=== PATIENT | male | born 2000 | race African-American/Black ===

== ENCOUNTER 2020-01-19 09:11 | Emergency (ER) | payer OTHER, SELFPAY ==
[2020-01-19 09:13] VITALS: BP 186/110; PULSE 98; RESP 17; TEMP 37.2; O2SAT 99; BMI 33.4
--- NOTE | 2020-01-19 09:24 | ED.DCSUM_ITS ---
History of Present Illness Chief Complaint: Sore Throat Informant: Patient Onset: Days Narrative: 20 year old male with no past medical history presents with complaints of sore throat. He has had a sore throat x4 days. Pain is more on the left side and he has developed neck swelling and hoarseness of his voice. He has odynophagia, but denies dysphagia. Denies fevers, chills, nausea, or vomiting. Past Medical History - Allergies and Home Meds Allergies/Adverse Reactions: Allergies No Known Allergies Allergy (Verified 01/19/20 09:13) Primary Care Physician: [facility] Doctor,Out of [NON-STAFF] - Past Medical History: None Review of Systems General: Denies: Chills, Fever, Sweats Eyes: Denies: Visual changes - bilaterally, Diplopia ENT: Reports: Sore throat. Denies: Rhinorrhea Cardiovascular: Denies: Chest pain, Palpitations Respiratory: Denies: Dyspnea, Cough, Dyspnea on exertion Gastrointestinal: Denies: Abdominal pain, Nausea, Vomiting, Diarrhea, Melena, Hematochezia Genitourinary: Denies: Dysuria, Hematuria, Frequency Musculoskeletal: Denies: Back pain, Extremity Pain Skin: Denies: Rash, Wounds Neurological: Denies: Headache, Weakness, Numbness Physical Exam Vital Signs/Narrative: Vital Signs Temp Pulse Resp BP Pulse Ox 01/19/20 09:13 98.9 F 98 17 186/110 H 99 Inital Vital Signs reviewed: Yes General: Well nourished, Well developed, No Acute Distress Head: Normocephalic, Atraumatic Eyes: Perrl, EOMI ENT: Moist mucous membranes, - - Visible left peritonsillar abscess with mild uvular deviation Neck: Supple, Nontender Cardiovascular: Regular rate, Regular rhythm, No murmurs Respiratory: No distress, CTA bilaterally, Chest nontender Abdomen: Soft, Nontender, Nondistended, Normal bowel sounds Back: Nontender, Normal Inspection Extremities: Nontender, No edema Skin: Normal color, No rash Neurological: Alert, Oriented x3, Cranial nerves II-XII grossly intact, Normal Strength, Normal Sensation Psychological: Normal affect, Normal Mood Diagnostic/Tx/Re-eval - Medical Decision Making Patient appears well nontoxic. Vital signs remarkable for BP of 186/110, otherwise normal. O2 sat 99% on room air. He has a visible left peritonsillar abscess. I consulted ENT who evaluated the patient and tried to drain the area multiple times without success. He believes it is a phlegmon. He was given Decadron and Unasyn here. He will be prescribed Augmentin for home. Thoroughly discussed return precautions including if he get worse or he has difficulty breathing to return to the ED. He will follow-up with ENT in the office in 1 week. He remained persistently hypertensive. Patient states he has been told he has hypertension before but it is untreated. He understands he needs to follow-up with his PCP. He was agreeable with this plan and discharged home in stable condition. ED Disposition - Plan for ED Patient: Disposition: Home or Assisted Living Diagnosis: Peritonsillar abscess Prescriptions: Amoxicillin/Potassium Clav [Augmentin 875-125 Tablet] 1 ea PO BID 10 Days #20 tab Transmission Status: Received by [facility] Referrals: [facility] Doctor,Out of [NON-STAFF] -
[2020-01-19] MEDS: dexAMETHasone 10 MG/ML Vial PO.IVFORM (10:02)
--- NOTE | 2020-01-19 10:44 | CON.PCM_ITS ---
Reason for Consult Date of Consultation: 01/19/20 History of Present Illness: The patient is a 20 year old M with a sore throat for 4 days. this worsened over the past 24 hours. received magic mouthwash from [employer]. denies dyspnea. mild odynophagia. no history of peritonsillar abscess. Past Medical History Allergies No Known Allergies Allergy (Verified 01/19/20 09:13) Home Medications: Ambulatory Orders Medication Instructions Recorded Benadryl 1 tab PO DAILY 01/19/20 Smoking Status: Current some day smoker Review of Systems Constitutional: Reports: Malaise HEENT: Denies: Head Aches, Sinus Congestion, Sinus Drainage Respiratory: Denies: Cough, Shortness of breath at rest, Sputum production Gastrointestinal: Denies: Abdominal Pain, Nausea, Vomiting Patient Problems: Active and Suspected Problems Peritonsillar abscess (Acute) - Physical Exam Vitals/I&O's: Vital Signs Temp Pulse Resp BP Pulse Ox 98.9 F 98 17 186/110 H 99 01/19/20 09:13 01/19/20 09:13 01/19/20 09:13 01/19/20 09:13 01/19/20 09:13 Oxygen Delivery Method Room Air Weight: 121.4 kg Body Mass Index (BMI) 33.4 General: Alert, Oriented x3, Cooperative Oral: - - bilateral tonsillitis with left sided watery edema and peritonsillar abscess vs phlegmon. Lungs: - - no stridor. oropharyngeal changes in voice, no hoarseness. Assessment/Plan All Active Problems Peritonsillar abscess (Acute) 20 year old male with peritonsillar phlegmon -vigorous aspiration in all areas of the peritonsillar space on the left negative for purulent material. see operative note for details. -no hoarseness. voice changes are from oropharynx. denies dysphagia or dyspnea. -improved within 30 minutes of decadron. received unasyn. discussed exten sively with patient and girlfriend. he will likely improve over the next 24 hours with steroids and antibiotics. he has not had antibiotic therapy to this point. if he worsens, he agrees to come back to the ER. he can see me in my office next week.
--- NOTE | 2020-01-19 10:50 | PCM.OPRPT ---
Problem List (1) Peritonsillar abscess Status: Acute Report of Operation Date of Procedure: 01/19/20 Pre-Operative Diagnosis: left peritonsillar abscess Post-Operative Diagnosis: left peritonsillar phlegmon Surgery/Procedure Performed:: incision/drainage peritonsillar abscess Type of Anesthesia:: Local Description of Procedure: the patient was repeatedly injected superior to the left superior tonsillar pole on the soft palate with lidocaine/epinephrine. after anesthesia was achieved, numerous attempts at needle localizing and aspirating purulent material were non productive of pus in all areas of the left peritonsillar space. hemostasis was observed. there were no complications.
[2020-01-19 11:20] VITALS: BP 182/88; PULSE 68; RESP 15
== END 2020-01-19 11:25 | disposition home or self-care (01) ==
PROVIDERS: Emergency Provider Physician Assistant
DX: J36 Peritonsillar abscess (principal); I10 Essential (primary) hypertension; F17.200 Nicotine dependence, unspecified, uncomplicated
CPT/HCPCS: 42700; 96365; 99283; J7040; A4216; J0295